=== PATIENT | female | born 1955 | race African-American/Black ===

== ENCOUNTER 2018-08-10 15:46 | Emergency (ER) | payer OTHER ==
[~2018-08-10] VITALS: Ht 165.1 cm; Wt 63.5 kg
[~2018-08-10 15:46] MED LIST: GARAMYCIN5 M1 OP; LEVOTHYROXIN0.112 M1 PO; NORCO 5-325 TA1 EACH PO; NORVASC 5 MG TAB5 MG PO
[2018-08-10 17:30] LABS: ABSOLUTE NEUTROPHILS 7.1 thou/uL (1.4-8.2); BASOPHILS 0.3 % (0.0-2.0); EOSINOPHILS 0.5 % (0.0-3.0); HEMATOCRIT 45.7 % (37.0-47.0); HEMOGLOBIN 15.5 gm/dL (12.0-15.0); LYMPHOCYTES 16.9 % (24.0-44.0); MCH 30.4 pg (26.0-34.0); MCHC 33.8 g/dL (28.0-37.0); MCV 89.8 fL (80.0-100.0); MONOCYTES 5.1 % (1.0-8.0); PLATELET COUNT 247 thou/uL (150-400); POLYS 77.2 % (36.0-66.0); RBC 5.09 mil/uL (4.20-5.00); RDW 15.1 % (10.5-14.5); WBC 9.2 thou/uL (4.0-11.0)
[2018-08-10 17:37] LABS: CALCIUM 9.8 mg/dL (8.5-10.1); CREATININE 0.8 mg/dL (0.6-1.0)
[2018-08-10 17:38] LABS: POTASSIUM 4.6 mmol/L (3.5-5.1)
[2018-08-10] MEDS ORDERED: NORCO 5-325 TA1 EACH PO (18:59)
[2018-08-10 19:09] VITALS: BP 190/91
== END 2018-08-10 19:13 | disposition home or self-care (01) ==
LOC: ER 15:46
PROVIDERS: Emergency Medicine
DX: S20.01XA Contusion of right breast, initial encounter (principal); S30.811A Abrasion of abdominal wall, initial encounter; S60.811A Abrasion of right wrist, initial encounter; I10 Essential (primary) hypertension; E05.90 Thyrotoxicosis, unspecified without thyrotoxic crisis or storm; Z88.5 Allergy status to narcotic agent; V49.49XA Driver injured in collision with other motor vehicles in traffic accident, initial encounter; Y93.89 Activity, other specified; Y92.89 Other specified places as the place of occurrence of the external cause; Y99.8 Other external cause status